=== PATIENT | male | born 1965 | race Caucasian/White ===

== ENCOUNTER 2017-09-09 13:00 | Emergency (ER) | payer MEDICAID ==
[~2017-09-09] VITALS: Ht 180.3 cm; Wt 93.0 kg
[2017-09-09 13:06] VITALS: BP 134/88
[2017-09-09] MEDS ORDERED: KETOROLAC 30 MG/1 ML ONE (13:55)
[2017-09-09] MEDS ORDERED: METHOCARBAMOL 750 MG TABLET ONE (13:55)
[2017-09-09] MEDS ORDERED: KETOROLAC 30 MG/1 ML IM ONE (14:00)
[2017-09-09] MEDS ORDERED: PLEASE ENTER ALLERGIES MC SCH (14:00)
[2017-09-09] MEDS ORDERED: METHOCARBAMOL 750 MG TABLET PO ONE (14:00)
== END 2017-09-09 14:23 | disposition home or self-care (01) ==
LOC: ED 14:17
DX: S39.012A Strain of muscle, fascia and tendon of lower back, initial encounter (principal); X50.0XXA Overexertion from strenuous movement or load, initial encounter; Y93.89 Activity, other specified; Y92.59 Other trade areas as the place of occurrence of the external cause; Y99.8 Other external cause status
CPT/HCPCS: 72110; 96372; 99284; J1885

== ENCOUNTER 2017-10-01 20:22 | Emergency (ER) | payer MEDICAID ==
[~2017-10-01] VITALS: Ht 180.3 cm; Wt 97.8 kg
[2017-10-01 20:31] VITALS: BP 140/99
[2017-10-01] MEDS ORDERED: LIDOCAINE 1%, 20ML SQ ONE (22:00)
[2017-10-01] MEDS ORDERED: BUPIVACAINE/PF-EPI 0.25% 1:200K SQ ONE (22:00)
[2017-10-01] MEDS ORDERED: LIDOCAINE 1%, 20ML ONE (22:05)
[2017-10-01] MEDS ORDERED: BUPIVACAINE/PF 0.5% ONE (22:06)
[2017-10-01] MEDS ORDERED: DIPH,PERTUSS(ACELL),TET VAC/PF 0.5 ML IM-VACC ONE ×3 (22:19→22:30)
== END 2017-10-01 22:44 | disposition home or self-care (01) ==
LOC: ED 22:40
DX: S62.663A Nondisplaced fracture of distal phalanx of left middle finger, initial encounter for closed fracture (principal); Z87.891 Personal history of nicotine dependence; X58.XXXA Exposure to other specified factors, initial encounter; Y93.89 Activity, other specified; Y92.89 Other specified places as the place of occurrence of the external cause; Y99.8 Other external cause status
CPT/HCPCS: 29130; 90471; 90715; 99284

== ENCOUNTER 2017-10-09 07:46 | Emergency (ER) | payer MEDICAID ==
[~2017-10-09] VITALS: Ht 180.3 cm; Wt 96.7 kg
[2017-10-09 07:47] VITALS: BP 134/92
== END 2017-10-09 09:43 | disposition home or self-care (01) ==
LOC: ED 09:40
DX: S62.633A Displaced fracture of distal phalanx of left middle finger, initial encounter for closed fracture (principal); W22.8XXA Striking against or struck by other objects, initial encounter; Y93.89 Activity, other specified; Y92.89 Other specified places as the place of occurrence of the external cause; Y99.8 Other external cause status; Z87.891 Personal history of nicotine dependence
CPT/HCPCS: 29130; 99284

== ENCOUNTER 2017-11-28 20:30 | Emergency (ER) | payer MEDICAID ==
[~2017-11-28] VITALS: Ht 180.3 cm; Wt 95.8 kg
[2017-11-28 20:33] VITALS: BP 152/102
== END 2017-11-28 21:30 | disposition home or self-care (01) ==
LOC: ED 21:20
DX: J30.2 Other seasonal allergic rhinitis (principal); B30.1 Conjunctivitis due to adenovirus
CPT/HCPCS: 99283

== ENCOUNTER 2017-12-26 08:03 | Emergency (ER) | payer MEDICAID ==
[~2017-12-26] VITALS: Ht 180.3 cm; Wt 92.6 kg
[2017-12-26 09:23] VITALS: BP 132/86
== END 2017-12-26 09:25 | disposition home or self-care (01) ==
LOC: ED 09:19
DX: L03.314 Cellulitis of groin (principal); K08.89 Other specified disorders of teeth and supporting structures; J30.9 Allergic rhinitis, unspecified
CPT/HCPCS: 99283

== ENCOUNTER 2018-03-09 13:51 | Emergency (ER) | payer MEDICAID ==
[~2018-03-09] VITALS: Ht 180.3 cm; Wt 87.2 kg
[2018-03-09] MEDS ORDERED: KETOROLAC 30 MG/1 ML ONE (14:29)
[2018-03-09] MEDS ORDERED: METHOCARBAMOL 750 MG TABLET ONE (14:29)
[2018-03-09] MEDS ORDERED: METHOCARBAMOL 750 MG TABLET PO ONE (14:30)
[2018-03-09] MEDS ORDERED: KETOROLAC 30 MG/1 ML IM ONE (14:30)
[2018-03-09 14:49] VITALS: BP 136/72
== END 2018-03-09 15:03 | disposition home or self-care (01) ==
LOC: ED 14:55
DX: S16.1XXA Strain of muscle, fascia and tendon at neck level, initial encounter (principal); X58.XXXA Exposure to other specified factors, initial encounter; Y93.89 Activity, other specified; Y99.8 Other external cause status; Y92.89 Other specified places as the place of occurrence of the external cause
CPT/HCPCS: 96372; 99283; J1885

== ENCOUNTER 2019-07-09 20:46 | Emergency (ER) | payer MEDICAID ==
[~2019-07-09] VITALS: Ht 180.3 cm; Wt 79.5 kg
[2019-07-09 21:17] VITALS: BP 154/97
== END 2019-07-09 22:42 | disposition home or self-care (01) ==
LOC: ED 22:36
DX: S60.416A Abrasion of right little finger, initial encounter (principal); W26.9XXA Contact with unspecified sharp object(s), initial encounter; Y93.89 Activity, other specified; Y92.009 Unspecified place in unspecified non-institutional (private) residence as the place of occurrence of the external cause; Y99.8 Other external cause status
CPT/HCPCS: 99283

== ENCOUNTER 2019-11-15 19:22 | Emergency (ER) | payer MEDICAID ==
[~2019-11-15] VITALS: Ht 180.3 cm; Wt 84.1 kg
[2019-11-15 19:23] VITALS: BP 137/91
== END 2019-11-15 20:04 | disposition home or self-care (01) ==
LOC: ED 20:00
DX: R09.89 Other specified symptoms and signs involving the circulatory and respiratory systems (principal); Z76.0 Encounter for issue of repeat prescription; F17.200 Nicotine dependence, unspecified, uncomplicated
CPT/HCPCS: 99283

== ENCOUNTER 2020-01-15 13:17 | Emergency (ER) | payer MEDICAID ==
[~2020-01-15] VITALS: Ht 180.3 cm; Wt 88.0 kg
[2020-01-15 13:21] VITALS: BP 139/96
--- NOTE | 2020-01-15 14:09 | NUR ---
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
--- NOTE | 2020-01-15 15:10 | NUR ---
EKG COMPLETE. CHART UP FOR RECHECK.
--- NOTE | 2020-01-15 15:24 | NUR ---
AT BEDSIDE FOR ASSESSMENT
[2020-01-15] MEDS ORDERED: KETOROLAC 30 MG/1 ML IM ONE (15:30)
[2020-01-15] MEDS ORDERED: KETOROLAC 30 MG/1 ML ONE (15:41)
--- NOTE | 2020-01-15 15:45 | NUR ---
MEDS ADMIN PER MAR
--- NOTE | 2020-01-15 15:59 | NUR ---
PT GOING TO XRAY.
--- NOTE | 2020-01-15 16:07 | NUR ---
PT BACK FROM XRAY. PT AMBULATING WITH STEADY GAIT.
--- NOTE | 2020-01-15 16:18 | NUR ---
ALL RESULTS ARE BACK AT THIS TIME. CHART UP FOR RECHECK.
== END 2020-01-15 16:40 | disposition home or self-care (01) ==
LOC: ED 16:25
DX: S20.211A Contusion of right front wall of thorax, initial encounter (principal); M54.9 Dorsalgia, unspecified; F17.200 Nicotine dependence, unspecified, uncomplicated; R94.31 Abnormal electrocardiogram [ECG] [EKG]; X58.XXXA Exposure to other specified factors, initial encounter; Y93.89 Activity, other specified; Y92.098 Other place in other non-institutional residence as the place of occurrence of the external cause; Y99.8 Other external cause status
CPT/HCPCS: 71046; 71120; 93005; 96372; 99284; J1885